=== PATIENT | female | born 1965 | race Caucasian/White ===

== ENCOUNTER 2023-01-07 18:31 | Outpatient (CLI) | payer BC, SELFPAY | END 2023-01-07 18:32 | disposition home or self-care (01) | LOC: NFLDUCREF 18:31 | PROVIDERS: PCP Family Medicine; Visit Provider Physician Assistant | DX: L98.9 Disorder of the skin and subcutaneous tissue, unspecified (principal) | CPT/HCPCS: 87070; 87186 ==

== ENCOUNTER 2023-01-27 16:27 | Outpatient (CLI) | payer BC, SELFPAY | END 2023-01-27 16:28 | disposition home or self-care (01) | LOC: NFLDUCREF 16:27 | PROVIDERS: PCP Family Medicine; Visit Provider Nurse Practitioner Family | DX: L03.90 Cellulitis, unspecified (principal); T14.8XXA Other injury of unspecified body region, initial encounter | CPT/HCPCS: 87070; 87186 ==

== ENCOUNTER 2024-04-30 12:11 | Emergency (ER) | payer BC, SELFPAY ==
--- OUTSIDE RECORDS SUMMARY | 2024-04-30 12:14 | XMS_ITS | Clinical Summary ---
Author Organization [facility] Address [place], [place] [address] Care Team Providers Care Advertiser Name Role Phone Cynthia Garber MD Primary Care Provider Allergies Active Allergy Reactions Criticality Noted Date Comments Propoxyphene-Acetaminop hen Shortness Of Breath,Angioedema 09/10/2008 Empagliflozin Other - Describe In Comment Field 07/29/2023 Urinary incontinence Metformin Diarrhea 10/15/2022 Morphine Shortness Of Breath,Angioedema 09/10/2008 Oxycodone Shortness Of Breath 04/14/2015 Oxycodone-Acetaminophen Shortness Of Breath,Angioedema 09/10/2008 Hydrocodone-Acetaminoph en Shortness Of Breath,Angioedema 09/10/2008 Medications QUEtiapine (SEROQUEL) 25 mg tabletIndications :Borderline personality disorder (HC),Bipolar II disorder (HC) Take 1 Tablet (25 mg) by mouth at bedtime. 90 Tablet 3 03/02/20 21 Active blood-glucose meterIndications: Type 2 diabetes mellitus without complication, without long-term current use of insulin (HC) Dispense meter, test strips, lancets covered by pt ins. E11.65 NIDDM type II, uncontrolled - Test 2 times/day. Reason: High A1C 1 Each 03/02/20 21 Active lancetsIndication s:Type 2 diabetes mellitus without complication, without long-term current use of insulin (HC) Test 2 times per day. 100 Each 03/02/20 21 Active buPROPion (WELLBUTRIN XL) 150 mg Extended-Release tablet 02/10/20 22 Active ALPRAZolam (XANAX) 1 mg tablet Take 1 mg by mouth every 8 hours if needed. 03/24/19 24 Active hydrOXYzine HCL (ATARAX) 25 mg tablet Take 25 mg by mouth three times daily. 04/14/19 24 Active atorvastatin (LIPITOR) 20 mg tabletIndications :Type 2 diabetes mellitus without complication, without long-term current use of insulin (HC) Take 1 Tablet (20 mg) by mouth once daily. 90 Tablet 3 04/29/19 24 Active glipiZIDE extended-release (GLUCOTROL XL) 10 mg Extended-Release tabletIndications :Diabetes mellitus type 2 with complications (HC) Take 2 Tablets (20 mg) by mouth once daily before a meal. 180 Tablet 3 04/29/19 24 Active FreeStyle Tatyana 3 Sensor for continuous blood glucose monitor (CGM)Indications: Diabetes mellitus type 2 with complications (HC) To be used to read blood sugars, follow consumer marketing analyst directions. 6 Each 3 07/29/19 24 Active FreeStyle Tatyana 3 [place] for continuous blood glucose monitor (CGM)Indications: Diabetes mellitus type 2 with complications (HC) To be used to read blood sugars follow consumer marketing analyst directions. 1 Each 07/29/19 24 Active aspirin (ECOTRIN) 81 mg enteric coated tabletIndications :Type 2 diabetes mellitus without complication, without long-term current use of insulin (HC) Take 1 Tablet (81 mg) by mouth once daily with a meal. 90 Tablet 3 07/29/19 24 Active nicotine 14 mg/24 hr (NICODERM; HABITROL) 14 mg/24 hr patchIndications: Cigarette nicotine dependence with nicotine-induced disorder Apply 1 Patch on dry, clean, hairless skin once daily. 28 Patch 3 07/29/19 24 Active nystatin (MYCOSTATIN) 100,000 unit/gram topical creamIndications: Yeast infection of the skin Apply topically to affected area(s) three times daily. 30 g 1 08/02/19 24 Active blood sugar diagnostic (Blood Glucose Test) stripIndications: Type 2 diabetes mellitus without complication, without long-term current use of insulin (HC) Test 2 times per day. 100 Each 3 08/30/19 24 Active pen needle, diabetic (UltiCare Pen Needle) 31 gauge x 5/16Indications: Type 2 diabetes mellitus without complication (HC) USE WITH VICTOZA ONCE DAILY 100 Each 08/30/19 24 Active blood sugar diagnostic (Contour Next Test Strips) stripIndications: Type 2 diabetes mellitus without complication, without long-term current use of insulin (HC) Dispense item covered by pt ins. E11.9 IDDM type II - Test 1 time/day 100 Each 3 08/31/19 24 Active FLUoxetine (PROZAC) 40 mg capsuleIndication s:Depression, major, single episode, moderate (HC) Take 2 Capsules (80 mg) by mouth once daily in the morning. 180 Capsule 3 11/09/19 24 Active liraglutide (VICTOZA) 0.6 mg/0.1 mL (18 mg/3 mL) subcutaneous penIndications:Ty pe 2 diabetes mellitus without complication, without long-term current use of insulin (HC) Inject 1.8 mg subcutaneous once daily. Start 1.2 mg daily x1 week, then increase to 1.8 mg/day 18 mL 3 11/09/19 24 Active pen needle 32 gauge x 5/32 (disposable insulin pen needle)Indication s:Diabetes mellitus type 2 with complications (HC) Remove the 2 covers on the pen needle before administering medication dose. 100 Each 3 12/05/19 24 Active ondansetron (Zofran) 4 mg tabletIndications :Encounter for screening colonoscopy Take 1 Tablet (4 mg) by mouth every 6 hours if needed for Nausea/Vomiting. 6 Tablet 12/22/19 24 Active Lantus Solostar U-100 Insulin 100 unit/mL (3 mL) penIndications:Di abetes mellitus type 2 with complications (HC) Inject 44 units subcutaneous before bedtime. Product desired: LANTUS SOLOSTAR. Increase dose by 2 units every 3 days as needed to reach blood sugar goals 6 Each 02/01/20 24 Active Additional Information Patient not taking.Reported on 04/02/2024 Antifungal, Clotrimazole, 1 % cream APPLY TOPICALLY 2 TO 3 TIMES PER DAY FOR 2 WEEKS; AFTER CLEANSING SKIN. AFTER APPLICATION APPLY A BARRIER OINTMENT OVER. 10/04/19 24 Active OLANzapine (ZYPREXA, FILM COATED TABLET,) 10 mg tablet Take 10 mg by mouth at bedtime. 03/16/20 24 Active ibuprofen (ADVIL; MOTRIN) 600 mg tabletIndications :Chronic left shoulder pain TAKE ONE TABLET BY MOUTH THREE TIMES A DAY NEEDED FOR PAIN. MAXIMUM OF 3200MG IN 24 HOURS 270 tablet 1 04/11/20 19 025 Discontin ued(*Med complete/ Regimen complete/ Level of care change) propranoloL (INDERAL) 10 mg tablet 10/15/19 23 025 Discontin ued(*Med complete/ Regimen complete/ Level of care change) OLANzapine (ZYPREXA) 5 mg tablet Take 5 mg by mouth. 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 Prurigo nodularis 04/14/2015 Other allergic rhinitis 10/21/2014 Diabetes mellitus, type 2 04/01/2014 Diarrhea 07/04/2013 Overview (07/04/2013): Colonoscopy 06/2013 normal repeat in 10 years Panic disorder without agoraphobia 06/06/2013 PTSD (post-traumatic stress disorder) 06/06/2013 High triglycerides 12/22/2010 Resolved Problems Problem Noted Date Diagnosed Date Resolved Date Bipolar 2 disorder 09/10/2014 6 Major depressive disorder, r ecurrent episode, moderate 06/06/2013 11/13/2014 Prediabetes 12/22/2010 04/01/2014 Major depression, recurrent 12/10/2010 09/10/2014 Diabetes mellitus type II 03/18/2010 Overview (06/05/2013): a system change updated this record. This will not affect patient care or billing. This comment can be deleted. Encounters Date Type Department Care Team Description 04/11/2024 11:00 AM LINE DECORATOR Patient Outreach [facility] [address] [facility] [place] [phone] Diabetes (DM education) 04/11/2024 Travel 04/04/2024 Telephone [facility] [address] [facility] [address] Cali Austin MD 04/03/2024 Telephone [facility] [address] [place] [address] Cali Austin MD Questions (Colonoscopy prep) 04/02/2024 8:20 AM LINE DECORATOR Office Visit [facility] [address] [facility] [place] [address] Toby Chawla MD Preoperative Exam (04/06/2024/[facility]/Dr. Austin/Colonoscopy ) 04/02/2024 Travel 02/01/2024 Telephone [facility] [address] [place] [address] Cynthia Garber MD Medication Management (maxed dosage per day ) 01/31/2024 Telephone [facility] [address] [place] [address] Cynthia Garber MD Medication Management (Lantus Solostar U-100 Insulin 100 unit/mL (3 mL) pen) from Last 3 Months Immunizations Name Administration Dates Next Due COVID-19 vaccine ([employer]-Bio NTech 30mcg/0.3mL) 12YO+ BIVALENT PF, MDV 02/24/2022 COVID-19 vaccine ([employer] NTech 30mcg/0.3mL) PF, MDV 03/02/2021 Hepatitis B (Adult) 11/13/2010,05/01/2010,2010 INFLUENZA, IIV3 PF (AGE >= 6 MO) 12/15/2010 Influenza, IIV3 (Age 6-35 mos) 03/12/2012 Influenza, IIV3 (Age >=3 years) 12/16/19 11,01/02/2007,01/12/2006,2002 Influenza, IIV4 11/30/2021,,12/13/2019,2018,01/12/2018 Pneumococcal Conj 20-valent (Prevnar 20) 11/30/2021 Pneumococcal Poly,23-Valent (Pneumovax) 02/08/2019 Tdap 10/22/2020,11/13/2010 Zoster (Shingrix-RZV, recombinant) 05/28/2019, Family History Medical History Relation Name Comments Alcohol/Drug Father Diabetes Father Cancer Mother voicebox Cancer-breast No Family History Cancer-ovarian No Family History Relation Name Status Comments Brother Alive Daughter 1 Alive Daughter 2 Alive Father Maternal Grandfather Maternal Grandmother Mother Alive Paternal Grandfather Paternal Grandmother Sister 1 Alive Sister 2 Alive Social History Tobacco Use Types Packs/Day Years Used Date Smoking Tobacco: Every Day Cigarettes 1 40.6 Started: 09/13/1983 Smokeless Tobacco: Never Tobacco Cessation:Ready to Q uit: Yes; Counseling Given: Not Answered Comments:1 pk will last about 1 week Alcohol Use Standard Drinks/Week Comments No 0 (1 standard drink = 0.6 oz pur e alcohol) PHQ-2 Answer Date Recorded PHQ-2 TOTAL SCORE 0 11/09/2023 Social Connections Answer Date Recorded Do you often feel lonely or isolated from those around you? 4 07/29/2023 Financial Resource Strain Answer Date R ecorded Difficulty of Paying Living Expenses 3 07/29/2023 Difficulty of Paying Living Expenses Not on file 07/29/2023 Food Insecurity Answer Date Recorded Do you worry your food will run out before you are able to buy more? 2 07/29/2023 Transportation Needs Answer Date Record ed Does lack of transportation keep you from medica l appointments? 1 07/29/2023 Does lack of transportation keep you from work, meetings or getting things that you need? 1 07/29/2023 Housing Stability Answer Date Recorded What is your housing situation today? 1 07/29/2023 Utilities Answer Date Recorded Do you have trouble paying f or utilities (for example, heat, electricity, water, phone)? 1 07/29/2023 Comments No Sex and Gender Information Value Date Recorded Sex Assigned at Not on file Legal Sex Female 5:42 AM LINE DECORATOR Gender Identity Not on file Sexual Orientation Not on file Obstetrics History Last Filed Vital Signs Vital Sign Reading Time Taken Comments Blood Pressure 138/88 04/02/2024 8:16 AM LINE DECORATOR Pulse 81 04/02/2024 8:16 AM LINE DECORATOR Temperature 36.7 C (98.1 F) 04/02/2024 8:16 AM LINE DECORATOR Respiratory Rate 14 04/02/2024 8:16 AM LINE DECORATOR Oxygen Saturation 98% 04/02/2024 8:16 AM LINE DECORATOR Inhaled Oxygen Concentration - - Weight 98.9 kg (218 lb 1.6 oz) 04/02/2024 8:16 A M LINE DECORATOR Height 161.3 cm (5' 3.5) 04/02/2024 8:16 AM LINE DECORATOR Body Mass Index 38.02 04/02/2024 8:16 AM LINE DECORATOR Plan of Treatment Upcoming Encounters Date Type Department Care Team (Late st Contact Info) Description 05/16/2024 10:00 AM LINE DECORATOR Patient Outreach [address] [phone] Arabella Minor, RD [address] [place], [place] [id number] Health Maintenance Due Date Last Done Comments Colonoscopy through age 75 01/02/2014 07/03/2013 COVID-19 vaccine series ( season) 2023 02/24/2022, 03/02/2021, 08/19/2020 Influenza for age 50-64 11/20/2023 12/01/19, 03/02/2021, 12/13/2019, Additional history exists Low Dose CT (for lung CA) ag e 50-80 08/07/2024 08/08/2023, 12/17/2021 Mammogram for age 45-75 08/07/2024 08/08/19 24, 12/16/2021, 09/16/2016, Additional history exists Depression screening for age 12+ 11/10/2024 11/11/2023, 11/09/2023, 07/29/2023, Additional history exists BMI (ht and wt on same day) for age 18+ 04/02/2025 04/02/2024, 11/09/2023, 07/29/2023, Additional history exists Lipids for age 45-75 07/28/2028 07/29/2023, 10/15/2022, 06/18/2021, Additional history exists Tetanus booster 10/22/2030 10/22/2020, 10/20, 11/13/2010 HIV for age 15-65 Completed 03/19/2010 Hepatitis C screening for ag e 18-79 Completed 03/19/2010 Hepatitis B series for Diabetes Completed 11/13/2010, 05/01/2010, 03/24/2010 Zoster (shingles) series for age 50+ Completed 05/28/2019, 02/08/2019 Tdap Completed 10/22/2020, 11/13/2010 Pneumococcal series for age 50+ Completed 2, 02/08/2019 Procedures Procedure Name Priority Date/Time Associated Diagnosis Comments HEMOGLOBIN A1C Routine 04/02/2024 9:16 AM LINE DECORATOR Pre-op evaluation Diabetes mellitus type 2, uncontrolled, with complications XR MAMMO BILAT SCREENING Routine 08/08/2023 10:44 AM CDT Visit for screening mammogram CT CHEST SCREENING LOW DOSE WO CONTRAST Routine 08/08/2023 8:42 AM CDT Encounter for screening for lung cancer Smoker LIPID PANEL W REFLEX MEASURED LDL Routine 07/29/2023 10:22 AM CDT Diabetes mellitus type 2 with complications (HC) ANTI HIV 1/2 Routine 03/19/2010 2:02 PM LINE DECORATOR Routine screening for STI (sexually transmitted infection) ANTI HCV Routine 03/19/2010 2:02 PM LINE DECORATOR Routine screening for STI (sexually transmitted infection) from Last 3 Months or Most Recently Relevant to Health Maintenance Results * (ABNORMAL) HEMOGLOBIN A1C (04/02/2024 9:16 AM LINE DECORATOR) HEMOGLOBIN A1C 10.2(H) <5.7 % of total Hgb [facility] Comment: For someone without known diabetes, a hemoglobin A1c value of 6.5% or greater indicates that they may have diabetes and this should be confirmed with a follow-up test. For someone with known diabetes, a value <7% indicates that their diabetes is well controlled and a value greater than or equal to 7% indicates suboptimal control. A1c targets should be individualized based on duration of diabetes, age, comorbid conditions, and other considerations. Currently, no consensus exists regarding use of hemoglobin A1c for diagnosis of diabetes for children. Blood BLOOD SPECIMEN / Unknown 04/02/2024 9:16 AM LINE DECORATOR 04/02/2024 9:16 AM LINE DECORATOR Toby Chawla MD CHEMISTRY Final Result [employer] [facility] [address] [place] [address], modu [facility] [address] [place] [address] * XR MAMMO BILAT SCREENING (08/08/2023 10:44 AM CDT) Anatomical Region Laterality Modality BREASTS, Breast Left, Breast Right Bilateral Mammography Impressions 08/08/2023 3:28 PM CDT There is no radiographic evidence for malignancy. Recommend annual mammograms. MAMMOGRAM ASSESSMENT: ACR 1 Negative PATIENTS: You will also receive a letter with your examination results in an easy to read format. If you have questions about your results, please contact your referring provider. Narrative 08/08/2023 3:28 PM CDT For Patients: As a result of the Century Cures Act, medical imaging exams and procedure reports are released immediately into your electronic medical record. You may view this report before your referring provider. If you have questions, please contact your health care provider. XR MAMMO BILAT SCREENING [[id number]] CLINICAL HISTORY: This is an asymptomatic 57 y.o. patient. INDICATION FOR EXAM: Mammogram Screening. TECHNIQUE: CC & MLO views were obtained. This study was evaluated with the assistance of Computer-Aided Detection. COMPARISON FILM: Yes 12/16/21 [facility] 09/16/16 [facility] FINDINGS: The breasts are almost entirely fatty. There are no dominant masses, suspicious micro calcifications or areas of architectural distortion. Cynthia Garber MD MAMMO Final R esult * CT CHEST SCREENING LOW DOSE WO CONTRAST (08/08/2023 8:42 AM CDT) Anatomical Region Laterality Modality Computed Tomogra phy Impressions 08/08/2023 5:10 PM CDT 1. No suspicious pulmonary nodule (Lung-RADS Category 1: Negative). 2. Recommendation: Continue annual screening with low-dose chest CT in 12 months. Please note that all CT scans at this facility use dose modulation, iterative reconstruction and/or weight-based dosing when appropriate to reduce radiation dose to as low as reasonably achievable. Dictated by: Tom Torrez, @08/08/2023 11:58:27 AM/CRL:pjt Narrative 08/08/2023 5:10 PM CDT For Patients: As a result of the Century Cures Act, medical imaging exams and procedure reports are released immediately into your electronic medical record. You may view this report before your referring provider. If you have questions, please contact your health care provider. CHEST SCREENING LOW DOSE WITHOUT CONTRAST INDICATION: Encounter for screening for lung cancer. Smoker. TECHNIQUE: Low-dose lung cancer screening non-contrast CT chest. Dose reduction techniques were used. COMPARISON: CT chest without contrast 12/17/2021. FINDINGS: MEDIASTINUM/SOFT TISSUES: No pleural or pericardial effusions. No pathologic lymphadenopathy. Unenhanced thoracic aorta and main pulmonary arteries are normal in caliber. Heart size is within normal limits. Coronary artery calcifications, as before. Soft tissues of the thoracic wall are unremarkable. LUNGS: No pneumothorax. Central airways are patent. Mild motion artifact with bilateral scarring and/or atelectasis. No suspicious nodule or acute airspace disease. UPPER ABDOMEN: Fatty change of the liver and borderline splenomegaly. Visualized unenhanced upper abdomen is otherwise unremarkable. BONES: No acute or suspicious osseous abnormality. Degenerative changes of the spine. Cynthia Garber MD CT Final R esult * (ABNORMAL) LIPID PANEL W REFLEX MEASURED LDL (07/29/2023 10:22 AM CDT) CHOLESTEROL,TOTAL 161 100 - 199 mg/dL 07/29/2023 4:27 PM CDT [facility] Comment: Cholesterol, Total Reference Ranges Desirable <200 mg/dL Borderline 200-239 mg/dL High >=240 mg/dL TRIGLYCERIDES 332(H) <150 mg/dL 07/29/2023 4:27 PM CDT [facility] HDL CHOLESTEROL 32(L) >40 mg/dL 4:27 PM CDT [facility] NON-HDL CHOLESTEROL 129 <145 mg/dl 07/29/2023 4:27 PM CDT [facility] CHOL/HDL RATIO 5.03(H) <4.50 07/29/2023 4:27 PM CDT [facility] LDL CHOLESTEROL 63 <=130 mg/dL 07/29/2023 4:27 PM T [facility] VLDL CHOLESTEROL 66(H) <=30 mg/dL 07/29/2023 4:27 PM T [facility] PROVIDER ORDERED STATUS RANDOM 07/29/2023 4:27 PM T [facility] Blood BLOOD SPECIMEN / Unknown Venipuncture / Unknown 07/29/2023 10:22 AM CDT 07/29/2023 10:23 AM CDT Cynthia Garber MD CHEMISTRY Final R esult [facility] [address] [place] [address], * ANTI HCV (03/19/2010 2:02 PM LINE DECORATOR) [facility] ANTI HCV Non-reacti [facility] Blood specimen (specimen) BLOOD SPECIMEN / Unknown 03/19/2010 2:02 PM LINE DECORATOR 03/19/2010 1:54 PM LINE DECORATOR Cynthia Garber MD SEND OUTS Final R esult [facility] [place]NAL ZIP [id number] [place] [address] * ANTI HIV 1/2 (03/19/2010 2:02 PM LINE DECORATOR) [facility] BLOOD SPECIMEN / Unknown 03/19/2010 2:02 PM LINE DECORATOR 03/19/2010 1:54 PM LINE DECORATOR Cynthia Garber MD SEND OUTS Final R esult [facility] INTERNAL ZIP [phone] [address] from Last 3 Months or Most Recently Relevant to Health Maintenance Insurance [facility] Care Teams Advertiser Relationship Specialty Start Date End Date Cynthia Garber MD [address] [place] [id number] PCP - General Family Practice 06/04/15
[2024-04-30 12:15] VITALS: BP 125/79; PULSE 91; RESP 18; TEMP 36.4; O2SAT 97; BMI 38.6
--- NOTE | 2024-04-30 12:28 | ED.GENADULT ---
HPI - General Adult General Chief complaint: Rib Pain Stated complaint: flank pain/left side swelling/tender Time Seen by Provider: 04/30/24 12:27 History of Present Illness HPI narrative: Patient presents to the emergency department complaining of left sided rib pain nearly her abdomen. Patient states she was seen for this about 6 weeks ago and nothing was found at that time that would explain her pain. Patient is worried it could be her heart. Pain gets worse when she pushes on the area. Unsure if its related but she states she fell 10 days ago. 58-year-old woman presenting to the emergency department with concern of right side area. She denies any dysuria or hematuria. She describes increased tension and maybe swelling in this area from time to time. Sometimes she has to lay back in recliner massaged away. Not really pleuritic. She is not short of breath. She does struggle with GERD and definitely with constipation she says. Probably been a at least 2 weeks and she had a good bowel movement. Very small amount out this morning. This is not new problem for her. She does make these ?shit cocktails? referring to prune juice mixed with MiraLax and has been taking other bowel aids. Underlying history of diabetes. Noting rather high hemoglobin A1c that has been delaying a colonoscopy most recently. This was present 6 weeks ago and has come and gone since. Related Data Home Medications ?Medication ?Instructions ?Recorded ?Confirmed aspirin 81 mg tablet,delayed 81 mg PO DAILY 01/07/23 04/30/24 release atorvastatin 20 mg tablet 20 mg PO DAILY 01/07/23 04/30/24 buspirone 10 mg tablet 10 mg PO ONCE 01/07/23 04/30/24 fluoxetine 40 mg capsule 80 mg PO 01/07/23 11/29/23 glipizide 10 mg tablet, extended 20 mg PO BID 01/07/23 04/30/24 release 24 hr quetiapine 25 mg tablet mg PO 01/07/23 11/29/23 insulin glargine 100 unit/mL (3 10 unit subcut QPM 04/30/24 04/30/24 mL) subcutaneous pen (Lantus Solostar U-100 Insulin) liraglutide 0.6 mg/0.1 mL (18 mg/3 mg subcut 04/30/24 mL) subcutaneous pen injector Previous Rx's ?Medication ?Instructions ?Recorded albuterol sulfate 90 mcg/actuation 2 puff inhalation Q6H PRN 07/06/23 aerosol inhaler shortness of breath or wheezing #6.7 grams fluconazole 150 mg tablet 150 mg PO Q3D 2 doses #2 tabs 10/04/23 Allergies Allergy/AdvReac Type Severity Reaction Status Date / Time acetaminophen (From Vicodin) Allergy Verified 04/30/24 12:21 hydrocodone (From Vicodin) Allergy Verified 04/30/24 12:21 morphine Allergy Verified 04/30/24 12:21 oxycodone (From OxyContin) Allergy Verified 04/30/24 12:21 narcotics Allergy Uncoded 11/29/23 09:11 Review of Systems Status of ROS: Reports: 6 or more systems reviewed and unremarkable except as noted in History and below Exam Narrative: Exam Narrative: Pleasant. NAD. Abdomen is overweight soft. Reproducibly tender in the left upper abdomen. No masses. Not actually flank pain. Not pain with palpation to the ribs. Skin is warm and dry. No lower extremity edema. She is breathing easily. Lungs appear to be clear. Heart in regular rate and rhythm. Distant. Const: Vital Signs, click to edit/add: Vital Signs - 24 hr 04/30/24 12:15 Temperature 97.5 F L Pulse Rate [Right Pulse Oximeter] 91 Respiratory Rate 18 Blood Pressure [Ri ght Upper Arm] 125/79 Pulse Oximetry 97 Oxygen Delivery Me thod Room Air Documenting provider has reviewed patient's vital signs: yes Course Vital Signs Vital signs: Initial Vital Signs Temperature 97.5 F L 04/30/24 12:15 Temperature Source Temporal Artery Scan 04/30/24 12:15 Pulse Rate 91 04/30/24 12:15 Pulse Rhythm Regular 04/30/24 12:15 Pulse Strength 3+ Normal 04/30/24 12:15 Respiratory Rate 18 04/30/24 12:15 Blood Pressure 125/79 04/30/24 12:15 Blood Pressure Mean 94 04/30/24 12:15 Blood Pressure Position Sitting 04/30/24 12:15 Pulse Oximetry 97 04/30/24 12:15 Oxygen Delivery Method Room Air 04/30/24 12:15 Vital Signs Temperature 97.5 F L 04/30/24 12:15 Pulse Rate 91 04/30/24 12:15 Respiratory Rate 18 04/30/24 12:15 Blood Pressure 125/79 04/30/24 12:15 Pulse Oximetry 97 04/30/24 12:15 Oxygen Delivery Method Room Air 04/30/24 12:15 Temperature 97.5 F L 04/30/24 12:15 Pulse Rate 91 04/30/24 12:15 Respiratory Rate 18 04/30/24 12:15 Blood Pressure 125/79 04/30/24 12:15 Pulse Oximetry 97 04/30/24 12:15 Oxygen Delivery Method Room Air 04/30/24 12:15 Medical Decision Making MDM Narrative Medical decision making narrative: I would suspect intestinal colic and constipation contributing to this pain as described. Will check some basic labs looking for other etiology or indication. X-ray of abdomen. Could be diverticulitis could be mesenteric adenitis. Does not appear to have sustained a rib injury. Could be low lying pneumonia but does not have any respiratory symptoms. Might see some atelectasis present. She might actually have some degree of gastroparesis with long history of poorly controlled diabetes. Labs are reassuring other than glucosuria and blood sugar of around 380. Normal white count. Less likely diverticulitis I suppose. Abdominal x-ray independently reviewed by me shows large amount of stool through the colon. No concerning air-fluid levels. Radiology over-read below Indication: Left upper abdominal pain Technique: Upright and supine views of the abdomen/pelvis, 3 images Comparison: None Findings/Impression: No evidence of bowel obstruction. No free air. Moderate to large stool burden throughout the colon. No suspicious calcifications. Few tiny pelvic phleboliths. The imaged lower lungs are clear. No acute fracture or malalignment. There is some degenerative changes of the lower lumbar spine and minimal degenerative changes of the bilateral femoroacetabular joints. Stable during time in the emergency department See patient discharge plan for further discussion I am reassured by your laboratory evaluation today. It does appear that constipation is likely playing a role. Would try for a good bowel clean out. If this does not resolve your discomfort would follow up in clinic for re-evaluation. Be seen sooner for marked increase in persistent abdominal pain, associated fever. If feeling like there is a significant plug or rather hard stool, would place an enema in repeated in an hour if no good result. And would drink a bottle of magnesium citrate and repeating the next day if no significant result. Meanwhile continue with daily MiraLax in at least 8 oz of liquid. Sounds like you have a system. I would does that 2-3 times daily adjusting to stool consistency over the next week or 2. Longer-term might benefit from Benefiber or similar supplementation. Medical Records Medical records reviewed: Yes I reviewed the patient's medical records Lab Data Lab results reviewed: Yes I reviewed the patient's lab results Labs: Lab Results 04/30/24 04/30/24 Range/Units 12:48 12:56 WBC 7.74 (4.50-11.00) K/uL RBC 5.04 (4.00-5.20) m/uL Hgb 15.0 (12.0-16.0) gm/dL Hct 43.8 (33.0-51.0) % MCV 87 (80-100) fL MCH 30 (26-34) pg MCHC 34 (32-36) gm/dL RDW Coeff of Alexandra 12.1 (11.5-15.5) % Plt Count 182 (140-440) K/uL Neut % (Auto) 63.6 (42.0-72.0) % Lymph % (Auto) 26.5 (20-44) % [place] % (Auto) 5.4 (0.0-11.0) % Eos % (Auto) 3.4 (0.0-7.0) % Baso % (Auto) 0.3 (0.0-3.0) % Neut # (Auto) 4.93 (1.7-7.0) K/uL Lymph # (Auto) 2.05 (0.90-2.90) K/uL [place] # (Auto) 0.40 (0.00-0.90) K/UL Eos # (Auto) 0.26 (0.00-0.50) K/uL Baso # (Auto) 0.02 (0.00-0.30) K/uL Abs Immat Gran (auto) 0.06 (0.00-0.30) K/uL Imm/Tot Granulo (auto) 0.8 % Sodium 136 (135-149) mmol/L Potassium 4.3 (3.6-5.1) mmol/L Chloride 99 (96-114) mmol/L Carbon Dioxide 30 (20-32) mmol/L Anion Gap 7 (7-15) mEq/L BUN 11 (7-30) mg/dL Creatinine 0.8 (0.5-1.5) mg/dL Estimated Creat Clear 64.18 Estimated GFR 86 ml/min Glucose 384 H* (60-115) mg/dL Calcium 9.3 (8.4-10.6) mg/dL Urine Color Yellow (Yellow) Urine Appearance Clear (Clear) Urine pH 6.0 (5.0-8.5) Ur Specific Yulan 1.020 (1.000-1.030) Urine Protein Negative (Negative) Urine Glucose (UA) 3+ A (Negative) Urine Ketones Negative (Negative) Urine Blood Negative (Negative) Urine Nitrite Negative (Negative) Urine Bilirubin Negative (Negative) Urine Urobilinogen 0.2 (0.2-1.0) Ur Leukocyte Esterase Negative (Negative) Urine RBC 0-2 (0-2) Urine WBC 0-2 (0-5) Ur Squamous Epith Cells Few (None-Few) Urine Bacteria Few A (None) Discharge Plan Discharge Clinical Impression: Abdominal pain Patient Disposition: Home, Self-Care Condition: Stable Additional Instructions: I am reassured by your laboratory evaluation today. It does appear that constipation is likely playing a role. Would try for a good bowel clean out. If this does not resolve your discomfort would follow up in clinic for re-evaluation. Be seen sooner for marked increase in persistent abdominal pain, associated fever. If feeling like there is a significant plug or rather hard stool, would place an enema in repeated in an hour if no good result. And would drink a bottle of magnesium citrate and repeating the next day if no significant result. Meanwhile continue with daily MiraLax in at least 8 oz of liquid. Sounds like you have a system. I would does that 2-3 times daily adjusting to stool consistency over the next week or 2. Longer-term might benefit from Benefiber or similar supplementation. Prescriptions: No Action fluconazole 150 mg tablet 150 mg PO Q3D Qty: 2 0RF Rx Instructions: may repeat second dose 72 hrs after first dose if symptoms persist atorvastatin 20 mg tablet 20 mg PO DAILY buspirone 10 mg tablet 10 mg PO ONCE glipizide 10 mg tablet extended release 24hr 20 mg PO BID fluoxetine 40 mg capsule 80 mg PO quetiapine 25 mg tablet PO aspirin 81 mg tablet,delayed release (DR/EC) 81 mg PO DAILY albuterol sulfate 90 mcg/actuation HFA aerosol inhaler 2 puff inhalation Q6H PRN (Reason: shortness of breath or wheezing) Qty: 6.7 0RF insulin glargine [Lantus Solostar U-100 Insulin] 100 unit/mL (3 mL) insulin pen 10 unit subcut QPM liraglutide 0.6 mg/0.1 mL (18 mg/3 mL) pen injector SUBCUT Patient Comments: INJECT 1.2MG SUBCUTANEOUSLY DAILY FOR 7 DAYS THEN INCREASE TO 1.8MG DAILY Follow Up/Referrals: Cynthia Garber MD [Primary Care Provider] - Stand Alone Forms: Daily [employer] Info Instructions
--- NOTE | 2024-04-30 12:48 | CRLHL7_ITS ---
For Patients: As a result of the Century Cures Act, medical imaging exams and procedure reports are released immediately into your electronic medical record. You may view this report before your referring provider. If you have questions, please contact your health care provider. Indication: Left upper abdominal pain Technique: Upright and supine views of the abdomen/pelvis, 3 images Comparison: None Findings/Impression: No evidence of bowel obstruction. No free air. Moderate to large stool burden throughout the colon. No suspicious calcifications. Few tiny pelvic phleboliths. The imaged lower lungs are clear. No acute fracture or malalignment. There is some degenerative changes of the lower lumbar spine and minimal degenerative changes of the bilateral femoroacetabular joints. Dictated by Preston Goncalves MD @ 04/30/2024 1:31:49 PM (Electronically Signed)
[2024-04-30 13:07] LABS: Basophils Absolute Auto 0.02 K/uL (0.00-0.30); Basophils Percent Auto 0.3 % (0.0-3.0); Eosinophils Absolute Auto 0.26 K/uL (0.00-0.50); Eosinophils Percent Auto 3.4 % (0.0-7.0); Hematocrit 43.8 % (33.0-51.0); Immature Granulocytes Abs Auto 0.06 K/uL (0.00-0.30); Immature Granulocytes Pct Auto 0.8 %; Lymphocytes Absolute Auto 2.05 K/uL (0.90-2.90); Lymphocytes Percent Auto 26.5 % (20-44); Mean Corpuscular HGB Conc 34 gm/dL (32-36); Mean Corpuscular Hemoglobin 30 pg (26-34); Mean Corpuscular Volume 87 fL (80-100); Monocytes Percent Auto 5.4 % (0.0-11.0); Neutrophils Absolute Auto 4.93 K/uL (1.7-7.0); Neutrophils Percent Auto 63.6 % (42.0-72.0); Platelet Count* 182 K/uL (140-440); RDW Coefficient of Variation % 12.1 % (11.5-15.5); Red Blood Count 5.04 m/uL (4.00-5.20); White Blood Count* 7.74 K/uL (4.50-11.00)
--- OUTSIDE RECORDS SUMMARY | 2024-04-30 13:17 | XMS_ITS | Clinical Summary ---
Author Organization [facility] [facility] Address [place], [place] [address] Care Team Providers Care Office Technician Name Role Phone Cynthia Garber MD Primary [...] be used to read blood sugars, follow parcel wrapper directions. 6 Each 3 07/29/19 24 Active FreeStyle Tatyana 3 Bear for continuous blood glucose monitor (CGM)Indications: Diabetes mellitus type 2 with complications (HC) To be used to read blood sugars follow parcel wrapper directions. 1 Each 07/29/19 24 Active aspirin [...] Department Care Team Description 04/11/2024 11:00 AM KNIFE EDGER Patient Outreach [facility] [address] [facility] [address] Diabetes (DM education) 04/11/2024 Travel 04/04/[address] [facility] [address] [facility] [place] [place] [address] Cali Austin MD 04/03/[address] [facility] [address] [place] [address] Cali Austin MD Questions (Colonoscopy prep) 04/02/2024 8:20 AM KNIFE EDGER Office Visit [facility] [address] [place] [address] Toby Chawla MD Preoperative Exam (04/06/2024/[facility]/Dr. Austin/Colonoscopy ) 04/02/2024 Travel 02/01/[address] [facility] [address] [place] [address] Cynthia Graber MD Medication Management (maxed dosage per day ) 01/31/[address] [facility] [address] [place] [address] Cynthia Garber MD Medication Management (Lantus Solostar U-100 Insulin 100 unit/mL (3 mL) pen) from Last 3 Months Immunizations Name Administration Dates Next Due COVID-19 vaccine (Nutricate-Bio NTech 30mcg/0.3mL) 12YO+ BIVALENT PF, MDV 02/24/2022 COVID-19 vaccine (Nutricate-Bio NTech 30mcg/0.3mL) PF, MDV 03/02/2021 Hepatitis B [...] on file Legal Sex Female 5:42 AM KNIFE EDGER Gender Identity Not on file Sexual Orientation Not on file Obstetrics History Last Filed Vital Signs Vital Sign Reading Time Taken Comments Blood Pressure 138/88 04/02/2024 8:16 AM KNIFE EDGER Pulse 81 04/02/2024 8:16 AM KNIFE EDGER Temperature 36.7 C (98.1 F) 04/02/2024 8:16 AM KNIFE EDGER Respiratory Rate 14 04/02/2024 8:16 AM KNIFE EDGER Oxygen Saturation 98% 04/02/2024 8:16 AM KNIFE EDGER Inhaled Oxygen Concentration - - Weight 98.9 kg (218 lb 1.6 oz) 04/02/2024 8:16 A M KNIFE EDGER Height 161.3 cm (5' 3.5) 04/02/2024 8:16 AM KNIFE EDGER Body Mass Index 38.02 04/02/2024 8:16 AM KNIFE EDGER Plan of Treatment Upcoming Encounters Date Type Department Care Team (Late st Contact Info) Description 05/16/2024 10:00 AM KNIFE EDGER Patient Outreach [address] [id number] Arabella Minor, RD [address] [place], [place] [address] Health Maintenance Due Date Last Done Comments [...] Comments HEMOGLOBIN A1C Routine 04/02/2024 9:16 AM KNIFE EDGER Pre-op evaluation Diabetes mellitus type 2, uncontrolled, [...] ANTI HIV 1/2 Routine 03/19/2010 2:02 PM KNIFE EDGER Routine screening for STI (sexually transmitted infection) ANTI HCV Routine 03/19/2010 2:02 PM KNIFE EDGER Routine screening for STI (sexually transmitted infection) from Last 3 Months or Most Recently Relevant to Health Maintenance Results * (ABNORMAL) HEMOGLOBIN A1C (04/02/2024 9:16 AM KNIFE EDGER) HEMOGLOBIN A1C 10.2(H) <5.7 % of total [...] BLOOD SPECIMEN / Unknown 04/02/2024 9:16 AM KNIFE EDGER 04/02/2024 9:16 AM KNIFE EDGER Toby Chawla MD CHEMISTRY Final Result [employer]aTest [facility] [address] [place] [address], [employer] [facility] [place] [place] [address] [place] [address] * XR MAMMO BILAT SCREENING (08/08/2023 10:44 [...] health care provider. XR MAMMO BILAT SCREENING [[id number]] CLINICAL HISTORY: This is an asymptomatic 57 y.o. patient. INDICATION FOR EXAM: Mammogram Screening. TECHNIQUE: CC & MLO views were obtained. This study was evaluated with the assistance of Computer-Aided Detection. COMPARISON FILM: Yes 12/16/21 [facility] 09/16/16 [facility] FINDINGS: The breasts are almost entirely fatty. [...] - 199 mg/dL 07/29/2023 4:27 PM CDT [facility] [employer] Comment: Cholesterol, Total Reference Ranges Desirable <200 mg/dL Borderline 200-239 mg/dL High >=240 mg/dL TRIGLYCERIDES 332(H) <150 mg/dL 07/29/2023 4:27 PM CDT [facility] [employer] HDL CHOLESTEROL 32(L) >40 mg/dL 4:27 PM CDT [facility] NON-HDL CHOLESTEROL 129 <145 mg/dl 07/29/2023 4:27 PM CDT [facility] CHOL/HDL RATIO 5.03(H) <4.50 07/29/2023 4:27 PM CDT [facility] LDL CHOLESTEROL 63 <=130 mg/dL 07/29/2023 4:27 PM T [facility] VLDL CHOLESTEROL 66(H) <=30 mg/dL 07/29/2023 4:27 PM T [facility] PROVIDER ORDERED STATUS RANDOM 07/29/2023 4:27 PM T [facility] Blood BLOOD SPECIMEN / Unknown Venipuncture / Unknown 07/29/2023 10:22 AM CDT 07/29/2023 10:23 AM CDT Cynthia Garber MD CHEMISTRY Final R esult [facility] [address] [place] [address], * ANTI HCV (03/19/2010 2:02 PM KNIFE EDGER) [facility] ANTI HCV Non-reacti [facility] Blood specimen (specimen) BLOOD SPECIMEN / Unknown 03/19/2010 2:02 PM KNIFE EDGER 03/19/2010 1:54 PM KNIFE EDGER Cynthia Garber MD SEND OUTS Final R esult [facility] INTERNAL ZIP [id number] [place] [address] * ANTI HIV 1/2 (03/19/2010 2:02 PM KNIFE EDGER) [facility] BLOOD SPECIMEN / Unknown 03/19/2010 2:02 PM KNIFE EDGER 03/19/2010 1:54 PM KNIFE EDGER Cynthia Garber MD SEND OUTS Final R esult [facility] INTERNAL ZIP [id number] [address] from Last 3 Months or Most Recently Relevant to Health Maintenance Insurance [facility] Care Teams Office Technician Relationship Specialty Start Date End Date Cynthia Garber MD [address] [place] [id number] PCP - General Family Practice 06/04/15
[2024-04-30 13:20] LABS: Slide Review Reflex No
[2024-04-30 13:24] LABS: Appearance Urine Clear (Clear); Bilirubin Urine Negative (Negative); Blood Urine Negative (Negative); Color Urine Yellow (Yellow); Glucose Urine 3+ (Negative); Ketones Urine Negative (Negative); Leukocyte Esterase Urine Negative (Negative); Nitrite Urine Negative (Negative); Protein Urine Negative (Negative); Urobilinogen Urine 0.2 (0.2-1.0)
[2024-04-30 13:25] LABS: Chloride* 99 mmol/L (96-114); Sodium* 136 mmol/L (135-149)
[2024-04-30 13:26] LABS: Potassium* 4.3 mmol/L (3.6-5.1)
[2024-04-30 13:28] LABS: Anion Gap 7 mEq/L (7-15); Carbon Dioxide* 30 mmol/L (20-32); Creatinine* 0.8 mg/dL (0.5-1.5); Est. Creatinine Clearance* 64.18; Estimated Glomerular Filt Rate 86 ml/min
[2024-04-30 13:29] LABS: Blood Urea Nitrogen* 11 mg/dL (7-30); Calcium* 9.3 mg/dL (8.4-10.6)
[2024-04-30 13:32] LABS: Bacteria Urine Few; RBC Urine 0-2 (0-2); Squamous Epithelial Cell Urine Few (None-Few); WBC Urine 0-2 (0-5)
[2024-04-30 13:38] LABS: Glucose* 384 mg/dL (60-115)
== END 2024-04-30 14:38 | disposition home or self-care (01) ==
PROVIDERS: Emergency Provider Family Medicine; PCP Family Medicine
DX: R10.9 Unspecified abdominal pain (principal)
CPT/HCPCS: 36415; 74018; 80048; 81001; 85025; 87086; 99283; 99284

== ENCOUNTER 2024-06-22 10:40 | Emergency (ER) | payer BC, SELFPAY ==
--- OUTSIDE RECORDS SUMMARY | 2024-06-22 10:43 | XMS_ITS | Clinical Summary ---
Author Organization [employer] [facility] Address [address] [place] [id number] Care Team Providers Care Repulping Supervisor Name Role Phone Cynthia Garber MD Primary Care Provider Allergies Active Allergy Reactions Criticality Noted Date Comments Propoxyphene-Acetaminop hen Shortness Of Breath,Angioedema 09/10/2008 Empagliflozin Other - Describe In Comment Field 07/29/2023 Urinary incontinence Metformin Diarrhea 10/15/2022 Morphine Shortness Of Breath,Angioedema 09/10/2008 Oxycodone Shortness Of Breath 04/14/2015 Oxycodone-Acetaminophen Shortness Of Breath,Angioedema 09/10/2008 Hydrocodone-Acetaminoph en Shortness Of Breath,Angioedema 09/10/2008 Medications QUEtiapine (SEROQUEL) 25 mg tabletIndication s:Borderline personality disorder (HC),Bipolar II disorder (HC) Take 1 Tablet (25 mg) by mouth at bedtime. 90 Tablet 3 021 Active blood-glucose meterIndications :Type 2 diabetes mellitus without complication, without long-term current use of insulin (HC) Dispense meter, test strips, lancets covered by pt ins. E11.65 NIDDM type II, uncontrolled - Test 2 times/day. Reason: High A1C 1 Each 021 Active lancetsIndicatio ns:Type 2 diabetes mellitus without complication, without long-term current use of insulin (HC) Test 2 times per day. 100 Each 021 Active buPROPion (WELLBUTRIN XL) 150 mg Extended-Release tablet 11/22/2 022 Active ALPRAZolam (XANAX) 1 mg tablet Take 1 mg by mouth every 8 hours if needed. Active hydrOXYzine HCL (ATARAX) 25 mg tablet Take 25 mg by mouth three times daily. Active FreeStyle Tatyana 3 Sensor for continuous blood glucose monitor (CGM)Indications :Diabetes mellitus type 2 with complications (HC) To be used to read blood sugars, follow box stapler directions. 6 Each 3 Active FreeStyle Tatyana 3 [place] for continuous blood glucose monitor (CGM)Indications :Diabetes mellitus type 2 with complications (HC) To be used to read blood sugars follow box stapler directions. 1 Each Active aspirin (ECOTRIN) 81 mg enteric coated tabletIndication s:Type 2 diabetes mellitus without complication, without long-term current use of insulin (HC) Take 1 Tablet (81 mg) by mouth once daily with a meal. 90 Tablet 3 Active nicotine 14 mg/24 hr (NICODERM; HABITROL) 14 mg/24 hr patchIndications :Cigarette nicotine dependence with nicotine-induced disorder Apply 1 Patch on dry, clean, hairless skin once daily. 28 Patch 3 Active nystatin (MYCOSTATIN) 100,000 unit/gram topical creamIndications :Yeast infection of the skin Apply topically to affected area(s) three times daily. 30 g 1 Active blood sugar diagnostic (Blood Glucose Test) stripIndications :Type 2 diabetes mellitus without complication, without long-term current use of insulin (HC) Test 2 times per day. 100 Each 3 Active pen needle, diabetic (UltiCare Pen Needle) 31 gauge x 5/16Indications :Type 2 diabetes mellitus without complication (HC) USE WITH VICTOZA ONCE DAILY 100 Each 3 024 Active blood sugar diagnostic (Contour Next Test Strips) stripIndications :Type 2 diabetes mellitus without complication, without long-term current use of insulin (HC) Dispense item covered by pt ins. E11.9 IDDM type II - Test 1 time/day 100 Each 3 024 Active FLUoxetine (PROZAC) 40 mg capsuleIndicatio ns:Depression, major, single episode, moderate (HC) Take 2 Capsules (80 mg) by mouth once daily in the morning. 180 Capsule 3 024 Active pen needle 32 gauge x 5/32 (disposable insulin pen needle)Indicatio ns:Diabetes mellitus type 2 with complications (HC) Remove the 2 covers on the pen needle before administering medication dose. 100 Each 3 024 Active ondansetron (Zofran) 4 mg tabletIndication s:Encounter for screening colonoscopy Take 1 Tablet (4 mg) by mouth every 6 hours if needed for Nausea/Vomiting. 6 Tablet Active Antifungal, Clotrimazole, 1 % cream APPLY TOPICALLY 2 TO 3 TIMES PER DAY FOR 2 WEEKS; AFTER CLEANSING SKIN. AFTER APPLICATION APPLY A BARRIER OINTMENT OVER. 024 Active OLANzapine (ZYPREXA, FILM COATED TABLET,) 10 mg tablet Take 10 mg by mouth at bedtime. Active glipiZIDE extended-release (GLUCOTROL XL) 10 mg Extended-Release tabletIndication s:Diabetes mellitus type 2 with complications (HC) TAKE 2 TABLETS (20 MG) BY MOUTH ONCE DAILY BEFORE A MEAL. 180 Tablet 025 Active atorvastatin (LIPITOR) 20 mg tabletIndication s:Type 2 diabetes mellitus without complication, without long-term current use of insulin (HC) TAKE 1 TABLET (20 MG) BY MOUTH ONCE DAILY. 90 Tablet 1 025 Active liraglutide 0.6 mg/0.1 mL (18 mg/3 mL) subcutaneous penIndications:T ype 2 diabetes mellitus without complication, without long-term current use of insulin (HC) INJECT 1.2MG SUBCUTANEOUSLY DAILY FOR 7 DAYS THEN INCREASE TO 1.8MG DAILY 18 mL 3 025 Active traZODone 50 mg tablet Take 25-50 mg by mouth at bedtime if needed for Sleep. 025 Active Lantus Solostar U-100 Insulin 100 unit/mL (3 mL) penIndications:D iabetes mellitus type 2 with complications (HC) Inject 25 units subcutaneous two times daily. Product desired: LANTUS SOLOSTAR. Increase dose by 2 units every 3 days as needed to reach blood sugar goals up to 70 per day 10 Each 2 025 Active semaglutide (Ozempic) 2 mg/3 mL subcutaneous penIndications:D iabetes mellitus type 2 with complications (HC) Inject 0.25 mg subcutaneous once weekly for 28 days, THEN 0.5 mg once weekly for 28 days. 6 mL 025 2024 Active semaglutide 1 mg/dose (4 mg/3 mL) subcutaneous penIndications:D iabetes mellitus type 2 with complications (HC) Inject 1 mg subcutaneous once weekly for 28 days. 3 mL 025 2024 Active atorvastatin (LIPITOR) 20 mg tabletIndication s:Type 2 diabetes mellitus without complication, without long-term current use of insulin (HC) Take 1 Tablet (20 mg) by mouth once daily. 90 Tablet 3 024 2024 Discontinued liraglutide (VICTOZA) 0.6 mg/0.1 mL (18 mg/3 mL) subcutaneous penIndications:T ype 2 diabetes mellitus without complication, without long-term current use of insulin (HC) Inject 1.8 mg subcutaneous once daily. Start 1.2 mg daily x1 week, then increase to 1.8 mg/day 18 mL 3 024 2024 Discontinued Lantus Solostar U-100 Insulin 100 unit/mL (3 mL) penIndications:D iabetes mellitus type 2 with complications (HC) Inject 44 units subcutaneous before bedtime. Product desired: LANTUS SOLOSTAR. Increase dose by 2 units every 3 days as needed to reach blood sugar goals 6 Each 024 2024 Discontinued(R eorder (E-cancel not sent)) tirzepatide (Mounjaro) 2.5 mg/0.5 mL penIndications:D iabetes mellitus type 2 with complications (HC),BMI 38.0-38.9,adult Inject 2.5 mg subcutaneous once weekly for 28 days. 2 mL 025 2024 Discontinued(* Availability/F ormulary change/Cost of medication) tirzepatide (Mounjaro) 5 mg/0.5 mL penIndications:D iabetes mellitus type 2 with complications (HC),BMI 38.0-38.9,adult Inject 5 mg subcutaneous once weekly for 28 days. 2 mL 025 2024 Discontinued(* Availability/F ormulary change/Cost of medication) Lantus Solostar U-100 Insulin 100 unit/mL (3 mL) penIndications:D iabetes mellitus type 2 with complications (HC) Inject 25 units subcutaneous two times daily. Product desired: LANTUS SOLOSTAR. Increase dose by 2 units every 3 days as needed to reach blood sugar goals 6 Each 025 2024 Discontinued(R eorder (E-cancel not sent)) Lantus Solostar U-100 Insulin 100 unit/mL (3 mL) penIndications:D iabetes mellitus type 2 with complications (HC) Inject 25 units subcutaneous two times daily. Product desired: LANTUS SOLOSTAR. Increase dose by 2 units every 3 days as needed to reach blood sugar goals up to 70 per day 18 Each 2 025 2024 Discontinued(* Medication adjustment) Active Problems Problem Noted Date Diagnosed Date [...] Encounters Date Type Department Care Team Description 06/12/2024 Telephone [facility] [address] [place] [address] Toby Chawla MD Prior Authorization (tirzepatide (Mounjaro) 2.5 mg/0.5 mL pen DENIED) 06/06/2024 10:50 AM CDT Office Visit [facility] [address] [place] [address] Toby Chawla MD Medication Management; Diabetes (Blood sugars - ranging 250-400s. ) 06/06/2024 Telephone [facility] [address] [place] [address] Toby Chawla MD Questions (Insulin) 06/06/2024 Travel 06/04/2024 Refill [facility] [address] [place] [address] Cynthia Garber MD Refill Request (Liraglutide) 06/02/[address] [address] Cynthia Garber MD Refill Request (Atorvastatin) 05/09/[address] [address] Cynthia Garber MD Refill Request (Glipizide Extended-release) 04/30/2024 Orders Only [facility] Scanner 1 scan: (1-Ord) [facility], XR ABDOMEN 1V, 04/30/2024 04/11/2024 11:00 AM SURVEILLANCE INSPECTOR Patient Outreach [address] [phone] Diabetes (DM education) 04/11/2024 Travel 04/04/2024 Telephone [facility] [address] [place] [address] Cali Austin MD 04/03/2024 Telephone [facility] [address] [place] [address] Cali Austin MD Questions (Colonoscopy prep) 04/02/2024 8:20 AM SURVEILLANCE INSPECTOR Office Visit [facility] [address] [place] [address] Toby Chawla MD Preoperative Exam (04/06/2024/[facility]/Dr. Austin/Colonoscopy ) 04/02/2024 Travel from Last 3 Months Immunizations Immunization Administration Dates Next Due COVID-19 vaccine (Pfizer-Bio NTech 30mcg/0.3mL) 12YO+ BIVALENT PF, MDV 02/24/2022 COVID-19 vaccine (Pfizer-Bio NTech 30mcg/0.3mL) PF, MDV 03/02/2021 Hepatitis B [...] Date Smoking Tobacco: Every Day Cigarettes 1 40.8 Started: 09/13/1983 Smokeless Tobacco: Never Tobacco Cessation:Ready [...] on file Legal Sex Female 5:42 AM SURVEILLANCE INSPECTOR Gender Identity Not on file Sexual Orientation Not on file Obstetrics History Last Filed Vital Signs Vital Sign Reading Time Taken Comments Blood Pressure 124/79 06/06/2024 10:20 AM CDT Pulse 84 06/06/2024 10:20 AM CDT Temperature 36.7 C (98.1 F) 04/02/2024 8:16 AM SURVEILLANCE INSPECTOR Respiratory Rate 14 04/02/2024 8:16 AM SURVEILLANCE INSPECTOR Oxygen Saturation 99% 06/06/2024 10:20 AM CDT Inhaled Oxygen Concentration - - Weight 101.2 kg (223 lb) 06/06/2024 10:20 AM CDT Height 161.3 cm (5' 3.5) 04/02/2024 8:16 AM SURVEILLANCE INSPECTOR Body Mass Index 38.88 04/02/2024 8:16 AM SURVEILLANCE INSPECTOR Plan of Treatment Upcoming Encounters Date Type Department Care Team (Late st Contact Info) Description 07/04/2024 10:00 AM CDT Office Visit [facility] [address] [place] [address] Toby Chawla MD [address] [place] [address] 07/09/2024 4:00 PM CDT Office Visit [facility] [address] [facility] [address] Clarke Taylor MD [address] [facility] [address] Health Maintenance Due Date Last Done Comments Colonoscopy through age 75 01/02/2014 07/03/2013 COVID-19 vaccine series ( season) 2023 02/24/2022, 03/02/2021, 08/19/[address] (for lung CA) ag e 50-80 08/07/2024 08/08/2023, 12/17/2021 Mammogram for age 45-75 08/07/2024 08/08/19, 12/16/2021, 09/16/2016, Additional history exists Depression screening for age 12+ 11/10/2024 11/11/2023, 11/09/2023, 07/29/2023, Additional history exists Influenza Vaccine (Season Ended) 2024 11/30/2021, 03/02/2021, 12/13/2019, Additional history exists BMI (ht and wt [...] Procedure Name Priority Date/Time Associated Diagnosis Comments SCAN-RADIOLOGY REPORT 04/30/2024 12:00 AM SURVEILLANCE INSPECTOR HEMOGLOBIN A1C Routine 04/02/2024 9:16 AM SURVEILLANCE INSPECTOR Pre-op evaluation Diabetes mellitus type 2, uncontrolled, [...] ANTI HIV 1/2 Routine 03/19/2010 2:02 PM SURVEILLANCE INSPECTOR Routine screening for STI (sexually transmitted infection) ANTI HCV Routine 03/19/2010 2:02 PM SURVEILLANCE INSPECTOR Routine screening for STI (sexually transmitted infection) from Last 3 Months or Most Recently Relevant to Health Maintenance Results * SCAN-RADIOLOGY REPORT (04/30/2024 12:00 AM SURVEILLANCE INSPECTOR) Anatomical Region Laterality Modality Other us Scanner OTHER Final Result * (ABNORMAL) HEMOGLOBIN A1C (04/02/2024 9:16 AM SURVEILLANCE INSPECTOR) HEMOGLOBIN A1C 10.2(H) <5.7 % of total [...] BLOOD SPECIMEN / Unknown 04/02/2024 9:16 AM SURVEILLANCE INSPECTOR 04/02/2024 9:16 AM SURVEILLANCE INSPECTOR Toby Chawla MD CHEMISTRY Final Result [facility] [address] [place] [address], [facility] [address] [place] [address] * XR MAMMO BILAT SCREENING (08/08/2023 10:44 [...] health care provider. XR MAMMO BILAT SCREENING [[id number]] CLINICAL HISTORY: This is an asymptomatic 57 y.o. patient. INDICATION FOR EXAM: Mammogram Screening. TECHNIQUE: CC & MLO views were obtained. This study was evaluated with the assistance of Computer-Aided Detection. COMPARISON FILM: Yes 12/16/21 [facility] 09/16/16 [facility] FINDINGS: The breasts are almost entirely fatty. [...] low as reasonably achievable. Dictated by: Tom Torrez DO @08/08/2023 11:58:27 AM/CRL:pjt Narrative 08/08/2023 5:10 PM CDT For Patients: As a result of the Cures Act, medical imaging exams and procedure [...] - 199 mg/dL 07/29/2023 4:27 PM CDT [facility] Comment: Cholesterol, Total Reference Ranges Desirable <200 mg/dL Borderline 200-239 mg/dL High >=240 mg/dL TRIGLYCERIDES 332(H) <150 mg/dL 07/29/2023 4:27 PM CDT [facility] HDL CHOLESTEROL 32(L) >40 mg/dL 4:27 PM CDT [facility] NON-HDL CHOLESTEROL 129 <145 mg/dl 07/29/2023 4:27 PM CDT [facility] CHOL/HDL RATIO 5.03(H) <4.50 07/29/2023 4:27 PM CDT [facility] LDL CHOLESTEROL 63 <=130 mg/dL 07/29/2023 4:27 PM T [facility] VLDL CHOLESTEROL 66(H) <=30 mg/dL 07/29/2023 4:27 PM T [facility] PROVIDER ORDERED STATUS RANDOM 07/29/2023 4:27 PM T [facility] Blood BLOOD SPECIMEN / Unknown Venipuncture / Unknown 07/29/2023 10:22 AM CDT 07/29/2023 10:23 AM CDT Cynthia Garber MD CHEMISTRY Final R esult [facility] [address] [place] [address], * ANTI HCV (03/19/2010 2:02 PM SURVEILLANCE INSPECTOR) [facility] (specimen) BLOOD SPECIMEN / Unknown 03/19/2010 2:02 PM SURVEILLANCE INSPECTOR 03/19/2010 1:54 PM SURVEILLANCE INSPECTOR Cynthia Garber MD SEND OUTS Final R esult [facility] INTERNAL ZIP [id number] [place] [address] * ANTI HIV 1/2 (03/19/2010 2:02 PM SURVEILLANCE INSPECTOR) [facility] ANTI HIV 1/2 [facility] Blood specimen (specimen) BLOOD SPECIMEN / Unknown 03/19/2010 2:02 PM SURVEILLANCE INSPECTOR 03/19/2010 1:54 PM SURVEILLANCE INSPECTOR Cynthia Garber MD SEND OUTS Final R esult [facility] INTERNAL ZIP [id number] [address] from Last 3 Months or Most Recently Relevant to Health Maintenance Insurance [employer] [facility] [place] Care Teams Repulping Supervisor Relationship Specialty Start Date End Date Cynthia Garber MD [address] [place] [id number] PCP - General Family Practice 06/04/15
[2024-06-22 10:48] VITALS: BP 126/77; PULSE 107; RESP 18; TEMP 36.7; O2SAT 96; BMI 39.5
--- NOTE | 2024-06-22 11:25 | CRLHL7_ITS ---
For Patients: As a result of the 21st Century Cures Act, medical imaging exams and procedure reports are released immediately into your electronic medical record. You may view this report before your referring provider. If you have questions, please contact your health care provider. INDICATION: PERIRECTAL SWELLING TECHNIQUE: CT of the abdomen and pelvis was obtained with 109 mL of Isovue 370 intravenous contrast. Please note that all CT scans at this facility use dose modulation, iterative reconstruction, and/or weight-based dosing when appropriate to reduce radiation dose to as low as reasonably achievable. COMPARISON: None. FINDINGS: Lower thorax: Mild coronary artery calcification. Liver and biliary tree: 1.2 centimeter indeterminate hepatic lesion measuring 50 HU (2/30). Gallbladder: Normal. Spleen: Mildly enlarged, measuring 15.6 centimeter (2/37). Pancreas: Normal. Adrenal glands: Normal. Kidneys and ureters: No hydronephrosis or obstructing renal calculi. Gastrointestinal tract: 2.7 x 2.2 x 4.3 centimeter left perianal area of edema along the medial left buttock/perineum without discrete drainable fluid collection (2/166, 4/134). Normal appendix. No evidence of bowel obstruction. Peritoneal cavity: Normal. Bladder: Normal. Pelvic organs: Status post hysterectomy. Vasculature: Mild calcification. Lymph nodes: 1.5 centimeter left inguinal lymph node (2/151). Abdominal wall: Moderate area of fat stranding is seen in the supraumbilical subcutaneous soft tissues (2/75). Musculoskeletal: Mild degenerative changes of the visualized spine. IMPRESSION: 1. 2.7 x 2.2 x 4.3 centimeter left perianal area of edema along the medial left buttock/perineum without discrete drainable fluid collection. Findings are compatible with phlegmon/developing abscess. Consider correlation with history of inflammatory bowel disease. 2. 1.5 centimeter left inguinal lymph node. This is nonspecific and may be reactive, though malignancy can not be excluded. 3. 1.2 centimeter indeterminate hepatic lesion measuring 50 HU. Consider outpatient ultrasound versus CT/MRI liver protocol for further characterization. 4. Mild splenomegaly. 5. Moderate area of fat stranding in the supraumbilical subcutaneous soft tissues. Consider correlation with injection in this region. Please note that all CT scans at this facility use dose modulation, iterative reconstruction, and/or weight-based dosing when appropriate to reduce radiation dose to as low as reasonably achievable. Dictated by Yoel Oakes MD @ 06/22/2024 12:36:10 PM (Electronically Signed)
--- NOTE | 2024-06-22 11:26 | ED_ITS ---
HPI - General Adult General Chief complaint: Unspecified Complaint, Adult Stated complaint: Red Line By Rectum - Swollen and Puffy - Feels Ill Time Seen by Provider: 06/22/24 11:30 History of Present Illness HPI narrative: Patient is a 58-year-old woman who comes in today with swelling around the left side of her anus. She has a history of external hemorrhoids which are unchanged. Patient states that the lesion extends both anteriorly and posteriorly in the subcutaneous tissue with no drainage or discharge. Patient has had no fevers no chills no night sweats no rectal pain with bowel movements. No abdominal pain no nausea no vomiting no fevers no chills. Patient noticed this morning which she is taking shower and has not had similar findings in the past Related Data Home Medications ?Medication ?Instructions ?Recorded ?Confirmed aspirin 81 mg tablet,delayed 81 mg PO DAILY 01/07/23 06/22/24 release atorvastatin 20 mg tablet 20 mg PO DAILY 01/07/23 06/22/24 buspirone 10 mg tablet 10 mg PO ONCE 01/07/23 06/22/24 fluoxetine 40 mg capsule 80 mg PO 01/07/23 11/29/23 glipizide 10 mg tablet, extended 20 mg PO BID 01/07/23 06/22/24 release 24 hr quetiapine 25 mg tablet mg PO 01/07/23 11/29/23 insulin glargine 100 unit/mL (3 10 unit subcut QPM 04/30/24 06/22/24 mL) subcutaneous pen (Lantus Solostar U-100 Insulin) liraglutide 0.6 mg/0.1 mL (18 mg/3 mg subcut 04/30/24 mL) subcutaneous pen injector Previous Rx's ?Medication ?Instructions ?Recorded albuterol sulfate 90 mcg/actuation 2 puff inhalation Q6H PRN 07/06/23 aerosol inhaler shortness of breath or wheezing #6.7 grams fluconazole 150 mg tablet 150 mg PO Q3D 2 doses #2 tabs 10/04/23 Allergies Allergy/AdvReac Type Severity Reaction Status Date / Time acetaminophen (From Vicodin) Allergy Verified 06/22/24 11:31 hydrocodone (From Vicodin) Allergy Verified 06/22/24 11:31 morphine Allergy Verified 06/22/24 11:31 oxycodone (From OxyContin) Allergy Verified 06/22/24 11:31 narcotics Allergy Uncoded 06/22/24 11:31 Review of Systems Status of ROS: Reports: 10 or more systems reviewed and unremarkable except as noted in History and below [facility] Social History Smoking Status: Current every day smoker Do you use any of these nicotine containing products: None Second hand tobacco smoke exposure: No How often do you have a drink containing alcohol: never AUDIT-C Alcohol total score: 0 Non-prescribed substance use: denies use service: No Exam Narrative: Exam Narrative: EXAM GENERAL: Patient appears comfortable and well. EYES: No scleral icterus. ENT: Tympanic membranes and oropharynx normal. THYROID: no thyroid nodules or thyromegaly. LYMPH: No supraclavicular or cervical lymphadenopathy. SKIN: Visible skin seen during exam normal or with benign process only. EXT: No dependent lower extremity pedal edema. HEART: Regular rate and rhythm with no murmurs, rubs, or gallops. LUNGS: Clear to auscultation bilaterally with no crackles or wheezes. ABD: Soft, non tender, non distended. PSYCH: Good eye contact, speech is not pressured. Perirectal exam shows numerous external hemorrhoids as well as area of induration and swelling to the left of the anus extending both anteriorly and posteriorly. Const: Vital Signs, click to edit/add: Vital Signs - 24 hr 06/22/24 10:48 06/22/24 12:26 Temperature 98.1 F Pulse Rate [Right Pulse Oximeter] 107 H 93 Respiratory Rate 18 14 Blood Pressure [Ri ght Upper Arm] 126/77 115/78 Pulse Oximetry 96 92 Oxygen Delivery Me thod Room Air Room Air Course Course ED Course: I suspect she has a perirectal abscess. I did collect CBC basic metabolic panel and CT abdomen pelvis with IV contrast pending. Vital Signs Vital signs: Initial Vital Signs Temperature 98.1 F 06/22/24 10:48 Temperature Source Temporal Artery Scan 06/22/24 10:48 Pulse Rate 107 H 06/22/24 10:48 Pulse Rhythm Regular 06/22/24 10:48 Pulse Strength 3+ Normal 06/22/24 10:48 Respiratory Rate 18 06/22/24 10:48 Blood Pressure 126/77 06/22/24 10:48 Blood Pressure Mean 93 06/22/24 10:48 Blood Pressure Position Sitting 06/22/24 10:48 Pulse Oximetry 96 06/22/24 10:48 Oxygen Delivery Method Room Air 06/22/24 10:48 Vital Signs Temperature 98.1 F 06/22/24 10:48 Pulse Rate 107 H 06/22/24 10:48 Respiratory Rate 18 06/22/24 10:48 Blood Pressure 126/77 06/22/24 10:48 Pulse Oximetry 96 06/22/24 10:48 Oxygen Delivery Method Room Air 06/22/24 10:48 Temperature 98.1 F 06/22/24 10:48 Pulse Rate 93 06/22/24 12:26 Respiratory Rate 14 06/22/24 12:26 Blood Pressure 115/78 06/22/24 12:26 Pulse Oximetry 92 06/22/24 12:26 Oxygen Delivery Method Room Air 06/22/24 12:26 Medical Decision Making MDM Narrative Medical decision making narrative: Patient presents with a perirectal discomfort. Workup shows what appears to be a early large perirectal abscess. I did call general surgery and they were unable to aspirate any liquid. Recommendation is to place the patient on Augmentin for the next 7 days and follow up in general surgery clinic early next week. She will return the emergency room if further problems develop. Lab Data Labs: Lab Results 06/22/24 Range/Units 11:40 WBC 13.58 H (4.50-11.00) K/uL RBC 5.50 H (4.00-5.20) m/uL Hgb 16.4 H (12.0-16.0) gm/dL Hct 47.2 (33.0-51.0) % MCV 86 (80-100) fL MCH 30 (26-34) pg MCHC 35 (32-36) gm/dL RDW Coeff of Alexandra 11.6 (11.5-15.5) % Plt Count 187 (140-440) K/uL Neut % (Auto) 82.3 H (42.0-72.0) % Lymph % (Auto) 10.5 L (20-44) % Billings % (Auto) 6.2 (0.0-11.0) % Eos % (Auto) 0.7 (0.0-7.0) % Baso % (Auto) 0.1 (0.0-3.0) % Neut # (Auto) 11.20 H (1.7-7.0) K/uL Lymph # (Auto) 1.40 (0.90-2.90) K/uL Billings # (Auto) 0.80 (0.00-0.90) K/UL Eos # (Auto) 0.10 (0.00-0.50) K/uL Baso # (Auto) 0.00 (0.00-0.30) K/uL Abs Immat Gran (auto) 0.00 (0.00-0.30) K/uL Imm/Tot Granulo (auto) 0.2 % Sodium 132 L (135-149) mmol/L Potassium 3.8 (3.6-5.1) mmol/L Chloride 96 (96-114) mmol/L Carbon Dioxide 26 (20-32) mmol/L Anion Gap 10 (7-15) mEq/L BUN 9 (7-30) mg/dL Creatinine 0.7 (0.5-1.5) mg/dL Estimated Creat Clear 73.35 Estimated GFR 101 ml/min Glucose 345 H (60-115) mg/dL Calcium 9.4 (8.4-10.6) mg/dL Discharge Plan Discharge Clinical Impression: Shirley-rectal abscess Patient Disposition: Home, Self-Care Condition: Stable Instructions: Rectal Abscess (ED) Additional Instructions: Warm soaks Augmentin as directed Tylenol Motrin Rest [facility]. Activity Level: No Restrictions Discharge Diet: Regular Prescriptions: No Action fluconazole 150 mg tablet 150 mg PO Q3D Qty: 2 0RF Rx Instructions: may repeat second dose 72 hrs after first dose if symptoms persist atorvastatin 20 mg tablet 20 mg PO DAILY buspirone 10 mg tablet 10 mg PO ONCE glipizide 10 mg tablet extended release 24hr 20 mg PO BID fluoxetine 40 mg capsule 80 mg PO quetiapine 25 mg tablet PO aspirin 81 mg tablet,delayed release (DR/EC) 81 mg PO DAILY albuterol sulfate 90 mcg/actuation HFA aerosol inhaler 2 puff inhalation Q6H PRN (Reason: shortness of breath or wheezing) Qty: 6.7 0RF insulin glargine [Lantus Solostar U-100 Insulin] 100 unit/mL (3 mL) insulin pen 10 unit subcut QPM liraglutide 0.6 mg/0.1 mL (18 mg/3 mL) pen injector SUBCUT Patient Comments: INJECT 1.2MG SUBCUTANEOUSLY DAILY FOR 7 DAYS THEN INCREASE TO 1.8MG DAILY Follow Up/Referrals: Cynthia Garber MD [Primary Care Provider] - Stand Alone Forms: [employer] Info Instructions
--- OUTSIDE RECORDS SUMMARY | 2024-06-22 11:43 | XMS_ITS | Clinical Summary ---
Author Organization [employer] [facility] [facility] Address [address] [place] [id number] Care Team Providers Care Superintendent Sanitation Name Role Phone Cynthia Garber MD Primary [...] be used to read blood sugars, follow typing checker directions. 6 Each 3 Active FreeStyle Tatyana 3 Inlet for continuous blood glucose monitor (CGM)Indications :Diabetes mellitus type 2 with complications (HC) To be used to read blood sugars follow typing checker directions. 1 Each Active aspirin (ECOTRIN) 81 [...] Type Department Care Team Description 06/12/[address] [facility] [address] [place] [address] Toby Chawla MD Prior Authorization (tirzepatide (Mounjaro) 2.5 mg/0.5 mL pen DENIED) 06/06/2024 10:50 AM CDT Office Visit [facility] [address] [place] [address] Toby Chawla MD Medication Management; Diabetes (Blood sugars - ranging 250-400s. ) 06/06/[address] [facility] [address] [place] [address] Toby Chawla MD Questions (Insulin) 06/06/2024 Travel 06/04/[address] [facility] [address] [place] [address] Cynthia Garber MD Refill Request (Liraglutide) 06/02/[address] [address] Cynthia Garber MD Refill Request (Atorvastatin) 05/09/[address] [address] Cynthia Garber MD Refill Request (Glipizide Extended-release) 04/30/2024 Orders Only [facility] Scanner 1 scan: (1-Ord) [facility], XR ABDOMEN 1V, 04/30/2024 04/11/2024 11:00 AM UPTWISTER TENDER Patient Outreach [address] [address] Diabetes (DM education) 04/11/2024 Travel 04/04/[address] [facility] [address] [place] [address] Cali Austin MD 04/03/[address] [facility] [address] [place] [address] Cali Austin MD Questions (Colonoscopy prep) 04/02/2024 8:20 AM UPTWISTER TENDER Office Visit [facility] [address] [place] [address] Toby Chawla MD Preoperative Exam (04/06/2024/[facility]/Dr. Austin/Colonoscopy ) 04/02/2024 Travel from Last 3 [...] on file Legal Sex Female 5:42 AM UPTWISTER TENDER Gender Identity Not on file Sexual Orientation Not on file Obstetrics History Last Filed Vital Signs Vital Sign Reading Time Taken Comments Blood Pressure 124/79 06/06/2024 10:20 AM CDT Pulse 84 06/06/2024 10:20 AM CDT Temperature 36.7 C (98.1 F) 04/02/2024 8:16 AM UPTWISTER TENDER Respiratory Rate 14 04/02/2024 8:16 AM UPTWISTER TENDER Oxygen Saturation 99% 06/06/2024 10:20 AM CDT Inhaled Oxygen Concentration - - Weight 101.2 kg (223 lb) 06/06/2024 10:20 AM CDT Height 161.3 cm (5' 3.5) 04/02/2024 8:16 AM UPTWISTER TENDER Body Mass Index 38.88 04/02/2024 8:16 AM UPTWISTER TENDER Plan of Treatment Upcoming Encounters Date Type Department Care Team (Late st Contact Info) Description 07/04/2024 10:00 AM CDT Office Visit [facility] [address] [place] [address] Toby Chawla MD [address] [place] [address] 07/09/2024 4:00 PM CDT Office Visit [facility] [address] [facility] [address] Clarke Taylor MD [address] [facility] [address] Health Maintenance Due Date Last Done Comments [...] Diagnosis Comments SCAN-RADIOLOGY REPORT 04/30/2024 12:00 AM UPTWISTER TENDER HEMOGLOBIN A1C Routine 04/02/2024 9:16 AM UPTWISTER TENDER Pre-op evaluation Diabetes mellitus type 2, uncontrolled, [...] ANTI HIV 1/2 Routine 03/19/2010 2:02 PM UPTWISTER TENDER Routine screening for STI (sexually transmitted infection) ANTI HCV Routine 03/19/2010 2:02 PM UPTWISTER TENDER Routine screening for STI (sexually transmitted infection) from Last 3 Months or Most Recently Relevant to Health Maintenance Results * SCAN-RADIOLOGY REPORT (04/30/2024 12:00 AM UPTWISTER TENDER) Anatomical Region Laterality Modality Other us Scanner OTHER Final Result * (ABNORMAL) HEMOGLOBIN A1C (04/02/2024 9:16 AM UPTWISTER TENDER) HEMOGLOBIN A1C 10.2(H) <5.7 % of total [...] BLOOD SPECIMEN / Unknown 04/02/2024 9:16 AM UPTWISTER TENDER 04/02/2024 9:16 AM UPTWISTER TENDER Toby Chawla MD CHEMISTRY Final Result [facility] [address] [place] [address], [facility] [address] [place] [address] * XR MAMMO BILAT SCREENING (08/08/2023 10:44 [...] health care provider. XR MAMMO BILAT SCREENING [[id number]] CLINICAL HISTORY: This is an asymptomatic 57 y.o. patient. INDICATION FOR EXAM: Mammogram Screening. TECHNIQUE: CC & MLO views were obtained. This study was evaluated with the assistance of Computer-Aided Detection. COMPARISON FILM: Yes 12/16/21 [facility] 09/16/[address] [facility] [address] FINDINGS: The breasts are almost entirely fatty. [...] - 199 mg/dL 07/29/2023 4:27 PM CDT [facility] Comment: Cholesterol, Total Reference Ranges Desirable <200 mg/dL Borderline 200-239 mg/dL High >=240 mg/dL TRIGLYCERIDES 332(H) <150 mg/dL 07/29/2023 4:27 PM CDT [facility] HDL CHOLESTEROL 32(L) >40 mg/dL 4:27 PM CDT [facility] NON-HDL CHOLESTEROL 129 <145 mg/dl 07/29/2023 4:27 PM CDT [facility] CHOL/HDL RATIO 5.03(H) <4.50 07/29/2023 4:27 PM CDT [facility] LDL CHOLESTEROL 63 <=130 mg/dL 07/29/2023 4:27 PM T [facility] VLDL CHOLESTEROL 66(H) <=30 mg/dL 07/29/2023 4:27 PM T [facility] PROVIDER ORDERED STATUS RANDOM 07/29/2023 4:27 PM T [facility] Blood BLOOD SPECIMEN / Unknown Venipuncture / Unknown 07/29/2023 10:22 AM CDT 07/29/2023 10:23 AM CDT Cynthia Garber MD CHEMISTRY Final R esult [facility] [address] [place] [address], * ANTI HCV (03/19/2010 2:02 PM UPTWISTER TENDER) [facility] specimen (specimen) BLOOD SPECIMEN / Unknown 03/19/2010 2:02 PM UPTWISTER TENDER 03/19/2010 1:54 PM UPTWISTER TENDER Cynthia Garber MD SEND OUTS Final R esult [facility] INTERNAL ZIP [id number] [place] [address] * ANTI HIV 1/2 (03/19/2010 2:02 PM UPTWISTER TENDER) [facility] ANTI HIV 1/2 [facility] Blood specimen (specimen) BLOOD SPECIMEN / Unknown 03/19/2010 2:02 PM UPTWISTER TENDER 03/19/2010 1:54 PM UPTWISTER TENDER Cynthia Garber MD SEND OUTS Final R esult [facility] INTERNAL ZIP [id number] [address] from Last 3 Months or Most Recently Relevant to Health Maintenance Insurance [employer] [facility] [place] Care Teams Superintendent Sanitation Relationship Specialty Start Date End Date Cynthia Garber MD [address] [place] [id number] PCP - General Family Practice 06/04/15
[2024-06-22 11:48] LABS: Basophils Percent Auto 0.1 % (0.0-3.0); Eosinophils Percent Auto 0.7 % (0.0-7.0); Hematocrit* 47.2 % (33.0-51.0); Hemoglobin* 16.4 gm/dL (12.0-16.0); Immature Granulocytes Pct Auto 0.2 %; Lymphocytes Percent Auto 10.5 % (20-44); Mean Corpuscular HGB Conc 35 gm/dL (32-36); Mean Corpuscular Hemoglobin 30 pg (26-34); Mean Corpuscular Volume 86 fL (80-100); Monocytes Percent Auto 6.2 % (0.0-11.0); Neutrophils Percent Auto 82.3 % (42.0-72.0); Platelet Count* 187 K/uL (140-440); RDW Coefficient of Variation % 11.6 % (11.5-15.5); White Blood Count* 13.58 K/uL (4.50-11.00)
[2024-06-22 12:05] LABS: Chloride* 96 mmol/L (96-114); Potassium* 3.8 mmol/L (3.6-5.1); Sodium* 132 mmol/L (135-149)
[2024-06-22 12:06] LABS: Slide Review Reflex No
[2024-06-22 12:08] LABS: Anion Gap 10 mEq/L (7-15); Blood Urea Nitrogen* 9 mg/dL (7-30); Carbon Dioxide* 26 mmol/L (20-32); Creatinine* 0.7 mg/dL (0.5-1.5); Est. Creatinine Clearance* 73.35; Estimated Glomerular Filt Rate 101 ml/min
[2024-06-22 12:09] LABS: Calcium* 9.4 mg/dL (8.4-10.6); Glucose* 345 mg/dL (60-115)
[2024-06-22 12:26] VITALS: BP 115/78; PULSE 93; RESP 14; O2SAT 92
--- NOTE | 2024-06-22 13:06 | P.GSCN_ITS ---
History of Present Illness Consult details Date Seen: 06/22/24 Consult date: 06/22/24 Narrative: The patient is a 58-year-old female who presented to the emergency department today with pain and firmness in her left perianal area. She states that she has had perianal itching for several days. She has had some loose stools with this. She tried preparation H but did not help. Today she developed the pain which is different. She has never had anything like this before. She has not noticed any drainage. She does not have any fevers. She has had chills. She does have a history of diabetes which has not been historically well controlled. Her last A1c in March was 10.2. She takes insulin and is working on getting additional anti diabetic medication. Her bowel movements range from very loose to constipation. They have always been irregular. PFSH [facility] Medical History (Updated 06/22/24 @ 14:51 by Kenia Teresa MD) Bipolar disorder ?F31.9 - (ICD-10) Obesity ?E66.9 - (ICD-10) Diabetes type 2, uncontrolled Surgical History (Updated 06/22/24 @ 14:51 by Kenia Teresa MD) History of back surgery ?Z98.890 - (ICD-10) H/O: hysterectomy ?Z90.710 - (ICD-10) Hx of tubal ligation ?Z98.51 - (ICD-10) S/P carpal tunnel release ?Z98.890 - (ICD-10) H/O: hemorrhoidectomy ?Z98.890 - (ICD-10) Social History Narrative: The patient lives with her young granddaughter. She does not drink alcohol. She smokes half a pack a day. Smoking Status: Current every day smoker Do you use any of these nicotine containing products: None Second hand tobacco smoke exposure: No How often do you have a drink containing alcohol: never AUDIT-C Alcohol total score: 0 Non-prescribed substance use: denies use service: No Meds Home Medications and Allergies Home Medications ?Medication ?Instructions ?Recorded ?Confirmed ?Type aspirin 81 mg tablet,delayed 81 mg PO DAILY 01/07/23 06/22/24 History release atorvastatin 20 mg tablet 20 mg PO DAILY 01/07/23 06/22/24 History buspirone 10 mg tablet 10 mg PO ONCE 01/07/23 06/22/24 History fluoxetine 40 mg capsule 80 mg PO 01/07/23 11/29/23 History glipizide 10 mg tablet, extended 20 mg PO BID 01/07/23 06/22/24 History release 24 hr quetiapine 25 mg tablet mg PO 01/07/23 11/29/23 History insulin glargine 100 unit/mL (3 10 unit subcut QPM 04/30/24 06/22/24 History mL) subcutaneous pen (Lantus Solostar U-100 Insulin) liraglutide 0.6 mg/0.1 mL (18 mg/3 mg subcut 04/30/24 History mL) subcutaneous pen injector Allergies Allergy/AdvReac Type Severity Reaction Status Date / Time acetaminophen (From Vicodin) Allergy Verified 06/22/24 11:31 hydrocodone (From Vicodin) Allergy Verified 06/22/24 11:31 morphine Allergy Verified 06/22/24 11:31 oxycodone (From OxyContin) Allergy Verified 06/22/24 11:31 narcotics Allergy Uncoded 06/22/24 11:31 Exam Narrative: Exam Narrative: General appearance: Alert, cooperative, and in no distress Eyes: PERRLA, eye lids clear, and sclera white HENT Head: Normocephalic Ears: External ears normal Pulmonary: Breathing nonlabored on room air Cardiovascular Heart: Regular rate Gastrointestinal Rectal: On external exam, the patient has faint erythema and firmness on the left buttock approaching the anus. There is no fluctuance. External hemorrhoidal tissue noted circumferentially. The patient is nontender in this area on digital exam. No masses are palpated on digital rectal exam. Ultrasound was applied to this area, no discrete fluid collection was identified under the area itself, however just adjacent to this there did appear to possibly be a small fluid collection. After obtaining verbal consent, the area was prepped with Betadine and anesthetized with 1% lidocaine. I then advanced a 19 gauge needle using ultrasound guidance into the area in question, however no fluid was able to be aspirated. The needle was withdrawn. Neurologic: No focal deficits Psychiatric: Alert, oriented, cooperative, normal affect. Const: Vital Signs, click to edit/add: Vital Signs - 24 hr 06/22/24 10:48 06/22/24 12:26 Temperature 98.1 F Pulse Rate [Right Pulse Oximeter] 107 H 93 Respiratory Rate 18 14 Blood Pressure [Ri ght Upper Arm] 126/77 115/78 Pulse Oximetry 96 92 Oxygen Delivery Me thod Room Air Room Air Results Labs Labs: Abnormal lab results 06/22/24 Range/Units 11:40 WBC 13.58 H (4.50-11.00) K/uL RBC 5.50 H (4.00-5.20) m/uL Hgb 16.4 H (12.0-16.0) gm/dL Neut % (Auto) 82.3 H (42.0-72.0) % Lymph % (Auto) 10.5 L (20-44) % Neut # (Auto) 11.20 H (1.7-7.0) K/uL Sodium 132 L (135-149) mmol/L Glucose 345 H (60-115) mg/dL Diabetes panel 06/22/24 Range/Units 11:40 Sodium 132 L (135-149) mmol/L Potassium 3.8 (3.6-5.1) mmol/L Chloride 96 (96-114) mmol/L Carbon Dioxide 26 (20-32) mmol/L BUN 9 (7-30) mg/dL Creatinine 0.7 (0.5-1.5) mg/dL Glucose 345 H (60-115) mg/dL Calcium 9.4 (8.4-10.6) mg/dL Calcium panel 06/22/24 Range/Units 11:40 Calcium 9.4 (8.4-10.6) mg/dL Pituitary panel 06/22/24 Range/Units 11:40 Sodium 132 L (135-149) mmol/L Potassium 3.8 (3.6-5.1) mmol/L Chloride 96 (96-114) mmol/L Carbon Dioxide 26 (20-32) mmol/L BUN 9 (7-30) mg/dL Creatinine 0.7 (0.5-1.5) mg/dL Glucose 345 H (60-115) mg/dL Calcium 9.4 (8.4-10.6) mg/dL Adrenal panel 06/22/24 Range/Units 11:40 Sodium 132 L (135-149) mmol/L Potassium 3.8 (3.6-5.1) mmol/L Chloride 96 (96-114) mmol/L Carbon Dioxide 26 (20-32) mmol/L BUN 9 (7-30) mg/dL Creatinine 0.7 (0.5-1.5) mg/dL Glucose 345 H (60-115) mg/dL Calcium 9.4 (8.4-10.6) mg/dL All other labs normal. Imaging Additional studies: CT scan abdomen pelvis done today: IMPRESSION: 1. 2.7 x 2.2 x 4.3 centimeter left perianal area of edema along the medial left buttock/perineum without discrete drainable fluid collection. Findings are compatible with phlegmon/developing abscess. Consider correlation with history of inflammatory bowel disease. 2. 1.5 centimeter left inguinal lymph node. This is nonspecific and may be reactive, though malignancy can not be excluded. 3. 1.2 centimeter indeterminate hepatic lesion measuring 50 HU. Consider outpatient ultrasound versus CT/MRI liver protocol for further characterization. 4. Mild splenomegaly. 5. Moderate area of fat stranding in the supraumbilical subcutaneous soft tissues. Consider correlation with injection in this region. Please note that all CT scans at this facility use dose modulation, iterative reconstruction, and/or weight-based dosing when appropriate to reduce radiation dose to as low as reasonably achievable. Dictated by Yoel Oakes MD @ 06/22/2024 12:36:10 PM Progress Note:A&P Assessment and plan (1) Diabetes type 2, uncontrolled: Status: Acute (2) Perianal cellulitis: Status: Acute Plan The patient is a 58-year-old female with perianal cellulitis, concern for developing abscess and in the setting of tobacco use and uncontrolled diabetes. No discrete collection was seen on CT and I was unable to aspirate any fluid using ultrasound. Recommend discharge home on antibiotics to cover for bowel betsey. Patient may follow up with me in clinic next week for reassessment. She understands that if her symptoms worsen such as she develops worsening pain, fevers or any other symptoms she should return to the ER over the weekend to be re-evaluated.
== END 2024-06-22 14:03 | disposition home or self-care (01) ==
PROVIDERS: Emergency Provider Internal Medicine; PCP Family Medicine
DX: K61.1 Rectal abscess (principal)
CPT/HCPCS: 36415; 74177; 80048; 82565; 85025; 99283; 99285; Q9967

== ENCOUNTER 2025-01-20 15:11 | Outpatient (CLI) | payer BC, SELFPAY | END 2025-01-20 15:12 | disposition home or self-care (01) | LOC: NFLDUCREF 15:11 | PROVIDERS: PCP Family Medicine | DX: J02.9 Acute pharyngitis, unspecified (principal) | CPT/HCPCS: 87070 ==